=== PATIENT | female | born 1995 | race Caucasian/White ===

== ENCOUNTER 2017-11-01 04:06 | Emergency (ER) | payer OTHER ==
[2017-11-01] MEDS ORDERED: ONDANSETRON 4 MG TAB.RAPDIS PO ONE (04:26)
[2017-11-01] MEDS ORDERED: NORMAL SALINE 1000 ML 2,000 ML IV ONE (04:29)
--- NOTE | 2017-11-01 04:42 | ER Document Report ---
ED General - General Stated Complaint: ETOH, NAUSEA, VOMITING Time Seen by Provider: 11/01/17 04:26 Mode of Arrival: Medic Information source: Patient Notes: 22-year-old female was out drinking at a bar with her friends. When she got home she was doing some vomiting and her fianc was worried that she possibly aspirated vomit because whenever she laid down she would say she would have trouble breathing and wanted to sit up. No color change , LOC. No c/o pain, able to lay supine now without any sx of trouble breathing or shortness of breath. No fall or head injury. - Related Data Allergies/Adverse Reactions: No Known Allergies Allergy (Verified 11/01/17 05:20) Past Medical History - General Information source: Patient - Social History Smoking Status: Current Every Day Smoker Frequency of alcohol use: Heavy - tonight Drug Abuse: None Lives with: Spouse/Significant other Family History: Other - alcoholism - Medical History Medical History: Negative Surgical Hx: Negative Review of Systems - Review of Systems Constitutional: No symptoms reported EENT: No symptoms reported Cardiovascular: No symptoms reported Respiratory: No symptoms reported Gastrointestinal: See HPI Genitourinary: No symptoms reported Female Genitourinary: No symptoms reported Musculoskeletal: No symptoms reported Skin: No symptoms reported Hematologic/Lymphatic: No symptoms reported Neurological/Psychological: No symptoms reported Physical Exam - Vital signs Vitals: Temp Pulse Resp BP Pulse Ox 98.3 F 70 15 111/65 100 11/01/17 04:15 11/01/17 04:15 11/01/17 04:15 11/01/17 04:15 11/01/17 04:15 Interpretation: Normal - General General appearance: Appears well, Alert - HEENT Head: Normocephalic, Atraumatic Eyes: Normal Conjunctiva: Injected - bilateral Pupils: PERRL Mucous membranes: Dry Neck: Supple - Respiratory Respiratory status: No respiratory distress Chest status: Nontender Breath sounds: Normal Chest palpation: Normal - Cardiovascular Rhythm: Regular Heart sounds: Normal auscultation Murmur: No - Abdominal Inspection: Normal Distension: No distension Bowel sounds: Normal Tenderness: Nontender. No: Tender Organomegaly: No organomegaly - Back Back: Normal, Nontender - Extremities General upper extremity: Normal inspection, Nontender, Normal color, Normal ROM , Normal temperature General lower extremity: Normal inspection, Nontender, Normal color, Normal ROM , Normal temperature, Normal weight bearing. No: Kristine's sign - Neurological Neuro grossly intact: Yes Cognition: Normal Orientation: AAOx4 [place] Coma Scale Eye Opening: Spontaneous Julia Coma Scale Verbal: Oriented Julia Coma Scale Motor: Obeys Commands Julia Coma Scale Total: 15 Speech: Normal Motor strength normal: LUE, RUE, LLE, RLE Sensory: Normal - Psychological Associated symptoms: Flight of ideas, Restlessness, Other - intoxicated - Skin Skin Temperature: Warm Skin Moisture: Dry Skin Color: Normal Skin irregularity: negative: Rash Course - Re-evaluation Re-evalutation: 11/01/17 04:49 pt walked to the bathroom with assistance. 11/01/17 04:51 Patient older brother states that he will take her home and watch her. 11/01/17 05:06 Right hand IV is infiltrated. She is drinking water without vomiting. Her brother and damaris are here at the bedside. resting more comfortably going to xray for PA and Lat 11/01/17 05:23 prelim chest xray is negative, drinking water, calm. Will be discharge home to sober brother and firay. - Vital Signs Vital signs: Temp Pulse Resp BP Pulse Ox 98.3 F 70 15 111/65 100 11/01/17 04:15 11/01/17 04:15 11/01/17 04:15 11/01/17 04:15 11/01/17 04:15 Discharge - Discharge Clinical Impression: vomiting Alcohol intoxication Qualifiers: Complication of substance-induced condition: uncomplicated Qualified Code(s): F10.920 - Alcohol use, unspecified with intoxication, uncomplicated Condition: Good Disposition: HOME, SELF-CARE Instructions: Acute Alcohol Intoxication ([facility]), Nausea or Vomiting, Nonspecific ([facility]), Antinausea Medication ([facility]) Additional Instructions: continue to drink water today home with brother and firay no alcohol anti-nausea medication zofran given as dispense pack to er any concerns
[2017-11-01] MEDS ORDERED: ONDANSETRON ODT 4 MG TAB (6 TAB/DSPK) PO PRN (05:26)
--- NOTE | 2017-11-01 05:38 | RADIOLOGY REPORT (SQ) ---
EXAM DESCRIPTION: CHEST PA/LAT CLINICAL HISTORY: possible aspiration COMPARISON: None. FINDINGS: Frontal and lateral views of the chest. The cardiomediastinal silhouette has normal size and contour. No consolidation, pneumothorax, or pleural effusion. No displaced rib fractures identified. Upper abdominal soft tissues are unremarkable. IMPRESSION: 1. No acute pulmonary process identified.
[2017-11-01 05:43] VITALS: BP 109/66
== END 2017-11-01 05:40 | disposition home or self-care (01) ==
LOC: ER 04:06
DX: R11.2 Nausea with vomiting, unspecified (principal); F10.920 Alcohol use, unspecified with intoxication, uncomplicated; F17.200 Nicotine dependence, unspecified, uncomplicated
CPT/HCPCS: 99284; 71020; S0119; J7030

== ENCOUNTER 2019-09-02 12:21 | Emergency (ER) | payer OTHER ==
[2019-09-02 12:38] VITALS: BP 116/77
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
== END 2019-09-02 13:12 | disposition home or self-care (01) ==
LOC: ER 12:21
DX: Z48.02 Encounter for removal of sutures (principal); S06.0X9D Concussion with loss of consciousness of unspecified duration, subsequent encounter; V44.6XXD Car passenger injured in collision with heavy transport vehicle or bus in traffic accident, subsequent encounter; F17.210 Nicotine dependence, cigarettes, uncomplicated
CPT/HCPCS: 99281